=== PATIENT | female | born 1940 | race Caucasian/White ===

== ENCOUNTER 2024-07-27 18:07 | Inpatient (IN) | payer MEDICARE, BC ==
[~2024-07-27] VITALS: Ht 154.9 cm; Wt 63.5 kg
[2024-07-27] MEDS ORDERED: IOHEXOL 350 100 ML INFUS..BTL ONE ×2 (18:19→18:45)
[2024-07-27 18:22] LABS: BASOPHILS # (AUTO) 0.1 K/UL (0.0-0.2); EOSINOPHILS # (AUTO) 0.1 K/uL (0.0-0.7); EOSINOPHILS % (AUTO) 1.1 % (0.0-7.0); HEMOGLOBIN 13.2 g/dL (10.9-14.3); LYMPHOCYTES # (AUTO) 1.6 K/uL (0.8-4.8); LYMPHOCYTES % (AUTO) 21.5 % (20.5-51.5); MEAN CORPUSCULAR HEMOGLOBIN 28.1 uug (24.7-32.8); MEAN CORPUSCULAR HGB CONC 34 g/dL (32.3-35.6); MEAN CORPUSCULAR VOLUME 83.1 fL (75.5-95.3); MONOCYTES # (AUTO) 0.8 K/uL (0.1-1.30); MONOCYTES % (AUTO) 11.6 % (0.0-11.0); NEUTROPHILS # (AUTO) 4.7 K/uL (1.8-8.9); NEUTROPHILS % (AUTO) 64.8 % (38.5-71.5); PLATELET COUNT (AUTO) 178 K/uL (179-408); RED BLOOD CELL COUNT(AUTO) 4.69 MIL/uL (3.63-4.92); RED CELL DISTRIBUTION WIDTH 14.7 % (12.3-17.7); WHITE BLOOD COUNT (AUTO) 7.3 K/uL (3.8-11.8)
[2024-07-27 18:24] LABS: DIFFERENTIAL COMMENT 1
[2024-07-27 18:28] LABS: CALCIUM 9.5 mg/dL (8.5-10.1); CARBON DIOXIDE 28 mmol/L (21-32); CHLORIDE 102 mmol/L (98-107); CREATININE 0.7 mg/dL (0.6-1.3); GLUCOSE 107 mg/dL (74-106); SODIUM SERUM 137 mmol/L (136-145); UREA NITROGEN, BLOOD 19 mg/dL (7-18)
[2024-07-27 18:34] LABS: ETHANOL < 3 MG/DL (0-10)
[2024-07-27 18:41] LABS: NT-PRO BNP 561 pg/mL (0-125)
[2024-07-27 18:42] LABS: THYROID STIMULATING HORMONE 0.308 mIU/mL (0.358-3.740)
[2024-07-27 18:44] LABS: *BILIRUBIN,URIN NEGATIVE (NEGATIVE); *CLARITY,URINE CLEAR (CLEAR); *COLOR,URINE YELLOW (YELLOW); *KETONES,URINE NEGATIVE (NEGATIVE); *PROTEIN,URINE NEGATIVE (NEGATIVE); *UROBILINOGEN,URINE 0.2 E.U./dl (NORMAL); LEUKOCYTE ESTERASE ,URINE NEGATIVE (NEGATIVE); NITRITE, URINE NEGATIVE (NEGATIVE); UGLUCOSE NEGATIVE (NEGATIVE)
[2024-07-27 18:50] LABS: *BLOOD, URINE TRACE (NEGATIVE)
[2024-07-27 18:58] LABS: *AMPHETAMINE, URINE NEGATIVE (NEGATIVE); *BARBITURATE, URINE NEGATIVE (NEGATIVE); *BENZODIAZEPINE, URINE NEGATIVE (NEGATIVE); *CANNABINOID, URINE NEGATIVE (NEGATIVE); *COCCAINE, URINE NEGATIVE (NEGATIVE); *OPIATE, URINE NEGATIVE (NEGATIVE); *PHENCYCLIDINE SCREEN,URINE NEGATIVE (NEGATIVE); FENTANYL, URINE NEGATIVE (NEGATIVE)
[2024-07-27 19:09] LABS: BACTERIA,URINE NONE SEEN /HPF (NONE SEEN); RBC,URINE 0-3 /HPF (0-3); SQUAMOUS EPITHELIAL CELL,UR FEW /HPF (NONE SEEN); WBC,URINE 0-3 /HPF (0-3)
[2024-07-27] MEDS: hydrALAZINE HCL 20 MG/1 ML VIAL IV PRN (19:35)
[2024-07-27] MEDS ORDERED: ATORVASTATIN 20 MG TABLET ONE ×2 (19:43→19:57)
[2024-07-27] MEDS ORDERED: MAGNESIUM HYDROXIDE 30 ML LIQUID UDC PO PRN (20:00)
[2024-07-27] MEDS ORDERED: ACETAMINOPHEN 325 MG TABLET PO PRN (20:00)
[2024-07-27] MEDS ORDERED: REMEDY ESSENTIAL ZINC PASTE 113 GM TP PRN (20:00)
[2024-07-27] MEDS: ATORVASTATIN 40 MG TABLET PO SCH (20:06)
[2024-07-27] MEDS: ACETAMINOPHEN 500 MG TABLET PO ONE (21:00)
[2024-07-27] MEDS: ENOXAPARIN SODIUM 40 MG/0.4 ML DISP.SYRIN SQ SCH (22:00)
[2024-07-27 22:35] VITALS: BP 146/65; TEMP 97.5; O2SAT 98
[2024-07-27] MEDS: ONDANSETRON 4 MG/2 ML VIAL IV PRN (23:16)
[2024-07-28] VITALS: BP 133/54; TEMP 98.3; O2SAT 94
[2024-07-28] MEDS: BUTALB/ACETAMINOPHEN/CAFFEINE CAPSULE PO PRN (01:14)
[2024-07-28] MEDS: hydrALAZINE HCL 25 MG TABLET PO SCH (01:15)
[2024-07-28 04:00] VITALS: BP 144/63; TEMP 97.8; O2SAT 95
[2024-07-28 06:49] LABS: BASOPHILS % (AUTO) 0.3 % (0.0-2.0); EOSINOPHILS % (AUTO) 0.1 % (0.0-7.0); HEMATOCRIT 37.7 % (31.2-41.9); LYMPHOCYTES # (AUTO) 1.2 K/uL (0.8-4.8); LYMPHOCYTES % (AUTO) 13.4 % (20.5-51.5); MEAN CORPUSCULAR HEMOGLOBIN 28.3 uug (24.7-32.8); MEAN CORPUSCULAR HGB CONC 34 g/dL (32.3-35.6); MEAN CORPUSCULAR VOLUME 82.2 fL (75.5-95.3); MONOCYTES # (AUTO) 0.6 K/uL (0.1-1.30); MONOCYTES % (AUTO) 6.6 % (0.0-11.0); NEUTROPHILS # (AUTO) 7.2 K/uL (1.8-8.9); NEUTROPHILS % (AUTO) 79.6 % (38.5-71.5); PLATELET COUNT (AUTO) 187 K/uL (179-408); RED BLOOD CELL COUNT(AUTO) 4.59 MIL/uL (3.63-4.92); RED CELL DISTRIBUTION WIDTH 14.8 % (12.3-17.7)
[2024-07-28 07:00] LABS: DIFFERENTIAL COMMENT 1
[2024-07-28 07:06] LABS: CALCIUM 9.5 mg/dL (8.5-10.1); CARBON DIOXIDE 25 mmol/L (21-32); CHLORIDE 100 mmol/L (98-107); CHOLESTEROL 171 mg/dL (<200); CREATININE 0.8 mg/dL (0.6-1.3); GLUCOSE 125 mg/dL (74-106); HDL CHOLESTEROL 102 mg/dL (40-60); MAGNESIUM 1.9 mg/dL (1.8-2.4); POTASSIUM 3.5 mmol/L (3.5-5.1); SODIUM SERUM 135 mmol/L (136-145); TRIGLYCERIDES 32 MG/DL (30-150); UREA NITROGEN, BLOOD 16 mg/dL (7-18)
[2024-07-28 07:40] VITALS: BP 122/51; TEMP 98.2; O2SAT 95
[2024-07-28] MEDS: LOSARTAN POTASSIUM 50 MG TABLET PO SCH (09:00)
[2024-07-28 09:21] VITALS: BP 114/53; TEMP 98.2; O2SAT 95
[2024-07-28] MEDS: ASPIRIN 81 MG TAB.CHEW PO SCH (09:30)
[2024-07-28] MEDS: METOPROLOL SUCCINATE XL 50 MG TAB.SR.24H PO SCH (09:32)
[2024-07-28] MEDS ORDERED: METO-357 PO (09:34)
[2024-07-28] MEDS ORDERED: ROSU20TA2 PO (09:34)
[2024-07-28] MEDS ORDERED: SERT50TA PO (09:34)
[2024-07-28] MEDS ORDERED: LOSA100T31 PO (09:34)
[2024-07-28] MEDS ORDERED: AMLO-212 PO (09:34)
[2024-07-28] MEDS ORDERED: LORAZEPAM 2 MG/1 ML VIAL IV PRN (10:30)
[2024-07-28 11:54] VITALS: BP 113/53; TEMP 98; O2SAT 95
[2024-07-28] MEDS ORDERED: CLOPIDOGREL 75 MG TABLET PO SCH (14:00)
[2024-07-28] MEDS ORDERED: ATORVASTATIN 40 MG TABLET PO SCH (21:00)
[2024-07-28] MEDS ORDERED: Medication Not On Formulary EA (Rosuvastatin Calcium (Crestor) 20 MG) PO SCH (21:00)
[2024-07-28] MEDS ORDERED: AMLODIPINE 5 MG TABLET PO SCH (21:00)
[2024-07-29 04:06] LABS: HEPATITIS B CORE AB, IgM Negative (Negative); HEPATITIS B CORE AB, TOTAL Negative (Negative); HEPATITIS B SURFACE AB, QUAL Non Reactive (.); HEPATITIS B SURFACE AG Negative (Negative); HEPATITIS Be ANTIGEN Negative (Negative); HEPATITIS C VIRUS ANTIBODY Non Reactive (Non Reactive)
[2024-07-29] MEDS ORDERED: SERTRALINE HCL 50 MG TABLET PO SCH (09:00)
== END 2024-07-28 14:10 | disposition left against medical advice (07) | DRG 304 ==
LOC: ER 18:07 → TELE3 22:00
PROVIDERS: ADMIT Nurse Practitioner Acute Care; ATTEND Nurse Practitioner Acute Care
DX: I16.1 Hypertensive emergency (principal); I63.9 Cerebral infarction, unspecified; G45.9 Transient cerebral ischemic attack, unspecified; G93.40 Encephalopathy, unspecified; I10 Essential (primary) hypertension; Z53.20 Procedure and treatment not carried out because of patient's decision for unspecified reasons; E05.90 Thyrotoxicosis, unspecified without thyrotoxic crisis or storm; E78.5 Hyperlipidemia, unspecified; R47.81 Slurred speech; R29.700 NIHSS score 0; R56.9 Unspecified convulsions; R29.818 Other symptoms and signs involving the nervous system
CPT/HCPCS: 36415; 70450; 70496; 83735; 84100; 84443; 84484; 85025; 85730; 86704; 86705; 86706; 86803; 87340; 87350; 87521; A9150; G0378; G0480; J0360; J1650; J2405; Q9967